=== PATIENT | male | born 1960 | race African-American/Black ===

== ENCOUNTER 2018-10-04 09:25 | Inpatient (IN) | payer MEDICAID ==
[~2018-10-04] VITALS: Ht 167.6 cm; Wt 69.9 kg
[~2018-10-04 09:25] MED LIST: CHOL20004 PO; LISI1TAB13 PO; METF-414 PO; SIMV20TA2 PO
[2018-10-04] MEDS ORDERED: ACETAMINOPHEN 325MG TABLET PO STA (11:43)
[2018-10-04] MEDS ORDERED: OSELTAMIVIR 75MG CAPSULE PO ONE (11:45)
[2018-10-04] MEDS ORDERED: LEVOFLOXACIN 750MG PREMIX 150 ML IV ONE (11:45)
[2018-10-04] MEDS ORDERED: SODIUM CHLORIDE 0.9% 1000ML BAG (SEPSIS BOLUS) IV ONE (11:45)
[2018-10-04] MEDS ORDERED: ONDANSETRON HCL 4MG/2ML INJ IV ONE (12:00)
[2018-10-04 12:49] LABS: HEMATOCRIT. 41.5 % (42.0-52.0); MEAN CORPUSCULAR HEMOGLOBIN 30.5 pg (28.0-32.0); MEAN CORPUSCULAR VOLUME 90.2 fL (80.0-94.0); MEAN PLATELET VOLUME 7.4 fl (7.4-10.4); PLATELET 261 x1000/uL (130-400); RED CELL DISTRIBUTION WIDTH 12.6 % (11.6-14.6)
[2018-10-04 12:53] LABS: CHLORIDE 94 mEq/L (98-107)
[2018-10-04 12:58] LABS: PROTHROMBIN TIME 10.5 sec (9.1-11.1)
[2018-10-04 13:47] LABS: PLATELET ESTIMATE NORMAL
[2018-10-04] MEDS ORDERED: DEXTROSE 50% WATER 50ML SYRINGE IV PRN (14:30)
[2018-10-04] MEDS ORDERED: CLONIDINE 0.1MG TABLET PO PRN (14:30)
[2018-10-04] MEDS ORDERED: IPRATROPIUM/ALBUTEROL 0.5-3(2.5)MG/3ML NEB HHN PRN (14:30)
[2018-10-04 20:06] LABS: CLARITY URINE CLEAR (CLEAR); COLOR URINE YELLOW (YELLOW); KETONES URINE TRACE (NEGATIVE); LEUKOCYTE ESTERASE URINE NEGATIVE (NEGATIVE); NITRITE URINE NEGATIVE (NEGATIVE); OCCULT BLOOD URINE 1+ (NEGATIVE); PROTEIN URINE 3+ (NEGATIVE); SPECIFIC GRAVITY URINE 1.028 (1.005-1.030); UROBILINOGEN URINE 0.2 E.U./dL (0.2-1.0)
[2018-10-04 20:20] LABS: *AMPHETAMINES SCREEN URINE NEGATIVE (NEGATIVE); *BARBITURATES SCREEN URINE NEGATIVE (NEGATIVE); *BENZODIAZEPINES SCREEN URINE NEGATIVE (NEGATIVE); *COCAINE SCREEN URINE NEGATIVE (NEGATIVE)
[2018-10-04 20:21] LABS: CANNABINOID URINE SCREEN PRESUMTIVE POSITIVE (NEGATIVE); METHADONE URINE SCREEN NEGATIVE (NEGATIVE); OPIATES URINE SCREEN NEGATIVE (NEGATIVE); PHENCYCLIDINE URINE SCREEN NEGATIVE (NEGATIVE)
[2018-10-04] MEDS ORDERED: INSULIN GLARGINE UD 100 UNITS/ML SYR SUBCUT SCH (22:00)
[2018-10-04] MEDS: OSELTAMIVIR 75MG CAPSULE PO SCH (23:18)
[2018-10-04] MEDS: ACETAMINOPHEN 325MG TABLET PO PRN (23:19)
[2018-10-04] MEDS: SODIUM CHLORIDE 0.45% 1,000 ML IV SCH (23:20)
[2018-10-04] MEDS: BLOOD SUGAR DIAGNOSTIC STRIP TEST SCH (23:20)
[2018-10-05] VITALS: BP 134/88
[2018-10-05] MEDS: ONDANSETRON HCL 4MG/2ML INJ IV PRN ×2 (00:01→22:21)
[2018-10-05] MEDS: KETOROLAC 30MG/ML VIAL IV PRN ×3 (00:02→13:08)
[2018-10-05] MEDS: INSULIN LISPRO 100 UNITS/ML SUBCUT SCH ×5 (00:33→20:22)
[2018-10-05] MEDS: INSULIN GLARGINE UD 100 UNITS/ML SYR SUBCUT SCH ×3 (00:33→22:30)
[2018-10-05 04:00] VITALS: BP 133/86
[2018-10-05 05:31] VITALS: BP 145/91
[2018-10-05] MEDS: BLOOD SUGAR DIAGNOSTIC STRIP TEST SCH ×4 (06:47→20:21)
[2018-10-05 07:42] LABS: CHLORIDE 101 mEq/L (98-107)
[2018-10-05 08:02] LABS: HEMATOCRIT. 41.5 % (42.0-52.0); MEAN CORPUSCULAR HEMOGLOBIN 30.7 pg (28.0-32.0); MEAN CORPUSCULAR VOLUME 90.8 fL (80.0-94.0); MEAN PLATELET VOLUME 7.4 fl (7.4-10.4); PLATELET 223 x1000/uL (130-400); RED BLOOD CELL COUNT 4.57 mill/uL (4.7-6.1); RED CELL DISTRIBUTION WIDTH 12.3 % (11.6-14.6)
[2018-10-05] MEDS: OSELTAMIVIR 75MG CAPSULE PO SCH ×2 (08:50→22:19)
[2018-10-05] MEDS: AMLODIPINE 5MG TABLET PO SCH ×2 (08:50→20:16)
[2018-10-05] MEDS: SODIUM CHLORIDE 0.45% 1,000 ML IV SCH (12:54)
[2018-10-05 13:27] LABS: PLATELET ESTIMATE NORMAL
[2018-10-05] MEDS ORDERED: BLOOD SUGAR DIAGNOSTIC STRIP TEST SCH (17:20)
[2018-10-05] MEDS ORDERED: HYDROMORPHONE HCL/PF 2MG/ML CPJ IV PRN (17:30)
[2018-10-05 20:00] VITALS: BP 146/87
[2018-10-06] VITALS (8 sets, daily range): BP systolic 124–140; BP diastolic 78–89
[2018-10-06] MEDS: ACETAMINOPHEN 325MG TABLET PO PRN ×2 (04:36→10:27)
[2018-10-06] MEDS: ONDANSETRON HCL 4MG/2ML INJ IV PRN (06:59)
[2018-10-06] MEDS: BLOOD SUGAR DIAGNOSTIC STRIP TEST SCH ×4 (06:59→20:20)
[2018-10-06] MEDS: INSULIN LISPRO 100 UNITS/ML SUBCUT SCH ×4 (07:50→20:20)
[2018-10-06] MEDS: AMLODIPINE 5MG TABLET PO SCH ×2 (09:08→20:12)
[2018-10-06] MEDS: OSELTAMIVIR 75MG CAPSULE PO SCH ×2 (09:09→20:11)
[2018-10-06] MEDS: GUAIFENESIN-DM 200MG-20MG/10ML UDC PO PRN (09:09)
[2018-10-06] MEDS: INSULIN GLARGINE UD 100 UNITS/ML SYR SUBCUT SCH (10:00)
[2018-10-06 10:07] LABS: BASOPHILS % 0.4 % (0.0-2.0); HEMATOCRIT. 42.7 % (42.0-52.0); HEMOGLOBIN. 14.6 g/dL (14.0-18.0); LYMPHOCYTES % 16.3 % (20.0-50.0); MEAN CORPUSCULAR HEMOGLOBIN 30.7 pg (28.0-32.0); MEAN CORPUSCULAR VOLUME 90.3 fL (80.0-94.0); MEAN PLATELET VOLUME 7.1 fl (7.4-10.4); MONOCYTES % 14.8 % (2.0-8.0); NEUTROPHILS % 68.5 % (40.0-76.0); PLATELET 217 x1000/uL (130-400); RED BLOOD CELL COUNT 4.73 mill/uL (4.7-6.1); RED CELL DISTRIBUTION WIDTH 12.3 % (11.6-14.6)
[2018-10-06 10:13] LABS: CHLORIDE 102 mEq/L (98-107)
[2018-10-06] MEDS: SODIUM CHLORIDE 0.45% 1,000 ML IV SCH (11:24)
[2018-10-06] MEDS: MORPHINE SULFATE 4 MG/ML CPJ (NOT FOR IM USE) IV PRN ×3 (13:41→22:08)
[2018-10-06] MEDS: FAMOTIDINE 20MG TABLET PO SCH (20:12)
[2018-10-07] VITALS: BP 135/81
[2018-10-07 04:00] VITALS: BP 80/78
[2018-10-07] MEDS: BLOOD SUGAR DIAGNOSTIC STRIP TEST SCH ×2 (06:44→11:20)
[2018-10-07] MEDS: INSULIN LISPRO 100 UNITS/ML SUBCUT SCH ×2 (07:50→11:20)
[2018-10-07 08:00] VITALS: BP 144/90
[2018-10-07 08:42] VITALS: BP 144/90
[2018-10-07] MEDS: AMLODIPINE 5MG TABLET PO SCH (08:59)
[2018-10-07] MEDS: OSELTAMIVIR 75MG CAPSULE PO SCH (08:59)
[2018-10-07] MEDS: GUAIFENESIN-DM 200MG-20MG/10ML UDC PO PRN (08:59)
[2018-10-07] MEDS: FAMOTIDINE 20MG TABLET PO SCH (09:00)
[2018-10-07 12:00] VITALS: BP 153/91
== END 2018-10-07 14:30 | disposition home or self-care (01) | DRG 720 ==
LOC: ER 09:29 → 6EST 13:36 → EDBEDREQ 13:38 → EDBEDREQTM 13:38 → CANRESERV 17:40 → EDRESERV 17:40 → ENRESERV 17:40 → EDBEDREQSVC 18:50 → ENRESERV 19:47
PROVIDERS: ADMIT Internal Medicine; ATTEND Internal Medicine
DX: A41.9 Sepsis, unspecified organism (principal); E44.1 Mild protein-calorie malnutrition; E87.8 Other disorders of electrolyte and fluid balance, not elsewhere classified; J10.1 Influenza due to other identified influenza virus with other respiratory manifestations; E87.1 Hypo-osmolality and hyponatremia; I10 Essential (primary) hypertension; J44.9 Chronic obstructive pulmonary disease, unspecified; E78.5 Hyperlipidemia, unspecified; E11.9 Type 2 diabetes mellitus without complications; E78.00 Pure hypercholesterolemia, unspecified; F12.90 Cannabis use, unspecified, uncomplicated; Z68.24 Body mass index [BMI] 24.0-24.9, adult
CPT/HCPCS: 36415; 71045; 74176; 80048; 80305; 82962; 83605; 84145; 84484; 87804; 93005; 93970; 96374; 99291; J1170; J1815; J1885; J1956; J2270; J2405; J7030

== ENCOUNTER 2018-12-17 07:18 | Inpatient (IN) | payer MEDICAID ==
[~2018-12-17] VITALS: Ht 175.3 cm; Wt 70.8 kg
[2018-12-17] MEDS ORDERED: SODIUM CHLORIDE 0.9% 1,000 ML IV ONE (08:22)
[2018-12-17] MEDS ORDERED: KETOROLAC 30MG/ML VIAL IV STA (08:22)
[2018-12-17] MEDS ORDERED: MAGNESIUM/ALUMINUM HYDROXIDE/SIMETHICONE 30ML UDC PO STA (08:22)
[2018-12-17] MEDS ORDERED: ONDANSETRON HCL 4MG/2ML INJ IV STA (08:22)
[2018-12-17 09:00] LABS: *AMPHETAMINES SCREEN URINE NEGATIVE (NEGATIVE); *BARBITURATES SCREEN URINE NEGATIVE (NEGATIVE); *BENZODIAZEPINES SCREEN URINE NEGATIVE (NEGATIVE); *COCAINE SCREEN URINE NEGATIVE (NEGATIVE); METHADONE URINE SCREEN NEGATIVE (NEGATIVE); OPIATES URINE SCREEN PRESUMTIVE POSITIVE (NEGATIVE)
[2018-12-17 09:01] LABS: CANNABINOID URINE SCREEN PRESUMTIVE POSITIVE (NEGATIVE); PHENCYCLIDINE URINE SCREEN NEGATIVE (NEGATIVE)
[2018-12-17 10:17] LABS: BASOPHILS % 0.5 % (0.0-2.0); EOSINOPHILS % 1.4 % (0.0-5.0); HEMATOCRIT. 50.5 % (42.0-52.0); HEMOGLOBIN. 17.2 g/dL (14.0-18.0); LYMPHOCYTES % 35.6 % (20.0-50.0); MEAN CORPUSCULAR HEMOGLOBIN 30.8 pg (28.0-32.0); MEAN CORPUSCULAR VOLUME 90.4 fL (80.0-94.0); MEAN PLATELET VOLUME 8.1 fl (7.4-10.4); MONOCYTES % 8.3 % (2.0-8.0); NEUTROPHILS % 54.2 % (40.0-76.0); PLATELET 320 x1000/uL (130-400); RED BLOOD CELL COUNT 5.58 mill/uL (4.7-6.1); RED CELL DISTRIBUTION WIDTH 13.1 % (11.6-14.6)
[2018-12-17 10:20] LABS: CHLORIDE 98 mEq/L (98-107)
[2018-12-17 10:25] LABS: ETHANOL BLOOD < 10 mg/dL
[2018-12-17] MEDS ORDERED: FENTANYL CITRATE/PF 50MCG/ML 2ML VIAL IV ONE (10:45)
[2018-12-17] MEDS ORDERED: INSULIN REGULAR (HUMULIN R) 300UNITS/3ML SUBCUT ONE (11:45)
[2018-12-17] MEDS ORDERED: DEXTROSE 50% WATER 50ML SYRINGE IV PRN (14:30)
[2018-12-17] MEDS: SODIUM CHLORIDE 0.9% 1,000 ML IV SCH (15:08)
[2018-12-17] MEDS: ONDANSETRON HCL 4MG/2ML INJ IV PRN (15:08)
[2018-12-17] MEDS: MORPHINE SULFATE 4 MG/ML CPJ (NOT FOR IM USE) IV PRN ×3 (15:08→22:49)
[2018-12-17 16:27] VITALS: BP 147/89
[2018-12-17] MEDS: BLOOD SUGAR DIAGNOSTIC STRIP TEST SCH ×3 (17:00→20:13)
[2018-12-17] MEDS: INSULIN LISPRO 100 UNITS/ML SUBCUT SCH ×2 (17:50→20:17)
[2018-12-17] MEDS ORDERED: SODIUM CHLORIDE 0.9% 1,000 ML IV SCH (19:00)
[2018-12-17 20:00] VITALS: BP 143/91
[2018-12-18] VITALS: BP 130/86
[2018-12-18] MEDS: SODIUM CHLORIDE 0.9% 1,000 ML IV SCH ×3 (00:22→23:04)
[2018-12-18] MEDS: MORPHINE SULFATE 4 MG/ML CPJ (NOT FOR IM USE) IV PRN ×6 (03:04→23:43)
[2018-12-18 04:00] VITALS: BP 148/93
[2018-12-18] MEDS: BLOOD SUGAR DIAGNOSTIC STRIP TEST SCH ×4 (06:40→21:00)
[2018-12-18] MEDS: INSULIN LISPRO 100 UNITS/ML SUBCUT SCH ×4 (06:41→21:00)
[2018-12-18 07:52] LABS: BASOPHILS % 0.6 % (0.0-2.0); HEMATOCRIT. 45.2 % (42.0-52.0); HEMOGLOBIN. 15.1 g/dL (14.0-18.0); LYMPHOCYTES % 39.6 % (20.0-50.0); MEAN CORPUSCULAR HEMOGLOBIN 30.6 pg (28.0-32.0); MEAN CORPUSCULAR VOLUME 91.7 fL (80.0-94.0); MEAN PLATELET VOLUME 7.6 fl (7.4-10.4); MONOCYTES % 7.8 % (2.0-8.0); PLATELET 264 x1000/uL (130-400); RED BLOOD CELL COUNT 4.93 mill/uL (4.7-6.1); RED CELL DISTRIBUTION WIDTH 13.1 % (11.6-14.6)
[2018-12-18 08:00] VITALS: BP 153/93
[2018-12-18 08:01] LABS: CHLORIDE 111 mEq/L (98-107)
[2018-12-18] MEDS ORDERED: SODIUM POLYSTYRENE SULFONATE 15 G/60 ML BOT PO NR (09:30)
[2018-12-18] MEDS: ONDANSETRON HCL 4MG/2ML INJ IV PRN ×2 (11:42→19:46)
[2018-12-18 12:00] VITALS: BP 140/86
[2018-12-18] MEDS ORDERED: SODIUM POLYSTYRENE SULFONATE 15 G/60 ML BOT PR NR (13:00)
[2018-12-18] MEDS: AMLODIPINE 10MG TABLET PO SCH (13:10)
[2018-12-18] MEDS ORDERED: SODIUM BICARBONATE 8.4% 1 MEQ/ML 50ML SYR IV SCH (15:00)
[2018-12-18] MEDS ORDERED: DEXTROSE 50% WATER 50ML SYRINGE IV SCH (15:00)
[2018-12-18] MEDS ORDERED: INSULIN REGULAR (HUMULIN R) UD 100 UNITS/ML SYR IV SCH (15:00)
[2018-12-18 16:00] VITALS: BP 144/80
[2018-12-18 20:00] VITALS: BP 196/120
[2018-12-19] VITALS: BP 141/81
[2018-12-19] MEDS: MORPHINE SULFATE 4 MG/ML CPJ (NOT FOR IM USE) IV PRN ×4 (03:50→16:22)
[2018-12-19 04:00] VITALS: BP 145/81
[2018-12-19] MEDS: SODIUM CHLORIDE 0.9% 1,000 ML IV SCH ×2 (06:34→16:21)
[2018-12-19] MEDS: BLOOD SUGAR DIAGNOSTIC STRIP TEST SCH ×3 (06:34→17:57)
[2018-12-19 06:48] LABS: BASOPHILS % 0.5 % (0.0-2.0); EOSINOPHILS % 1.3 % (0.0-5.0); HEMOGLOBIN. 13.7 g/dL (14.0-18.0); LYMPHOCYTES % 41.3 % (20.0-50.0); MEAN CORPUSCULAR HEMOGLOBIN 31.4 pg (28.0-32.0); MEAN CORPUSCULAR VOLUME 91.5 fL (80.0-94.0); MEAN PLATELET VOLUME 7.4 fl (7.4-10.4); MONOCYTES % 10.9 % (2.0-8.0); PLATELET 261 x1000/uL (130-400); RED BLOOD CELL COUNT 4.37 mill/uL (4.7-6.1)
[2018-12-19 07:36] LABS: CHLORIDE 109 mEq/L (98-107)
[2018-12-19] MEDS: INSULIN LISPRO 100 UNITS/ML SUBCUT SCH ×3 (07:49→17:50)
[2018-12-19 08:00] VITALS: BP 145/90
[2018-12-19] MEDS: AMLODIPINE 10MG TABLET PO SCH (08:02)
[2018-12-19 12:00] VITALS: BP 156/78
[2018-12-19 16:00] VITALS: BP 134/79
[2018-12-19 18:08] VITALS: BP 134/79
== END 2018-12-19 19:45 | disposition home or self-care (01) | DRG 282 ==
LOC: ER 07:24 → 6EST 11:43 → EDBEDREQ 15:20 → ENRESERV 15:35
PROVIDERS: ADMIT Internal Medicine; ATTEND Internal Medicine
DX: K85.90 Acute pancreatitis without necrosis or infection, unspecified (principal); E87.1 Hypo-osmolality and hyponatremia; F12.90 Cannabis use, unspecified, uncomplicated; I10 Essential (primary) hypertension; E78.5 Hyperlipidemia, unspecified; E11.9 Type 2 diabetes mellitus without complications; M48.07 Spinal stenosis, lumbosacral region; E78.00 Pure hypercholesterolemia, unspecified; Z79.4 Long term (current) use of insulin; Z79.84 Long term (current) use of oral hypoglycemic drugs; Z79.899 Other long term (current) drug therapy
CPT/HCPCS: 36415; 74176; 80048; 80305; 80320; 82962; 83036; 99285; J1815; J1885; J2270; J2405; J3010; J3490; J7030; G0480

== ENCOUNTER 2019-02-02 10:00 | Inpatient (IN) | payer MEDICAID ==
[~2019-02-02] VITALS: Ht 175.3 cm; Wt 68.9 kg
[2019-02-02] MEDS ORDERED: MORPHINE SULFATE 4 MG/ML CPJ (NOT FOR IM USE) IV STA (11:20)
[2019-02-02] MEDS ORDERED: FAMOTIDINE 20MG/2ML VIAL IV STA (11:20)
[2019-02-02] MEDS ORDERED: ONDANSETRON HCL 4MG/2ML INJ IV STA (11:20)
[2019-02-02] MEDS ORDERED: SODIUM CHLORIDE 0.9% 1,000 ML IV ONE (11:20)
[2019-02-02 11:40] LABS: BASOPHILS % 0.7 % (0.0-2.0); EOSINOPHILS % 1.9 % (0.0-5.0); HEMATOCRIT. 44.9 % (42.0-52.0); HEMOGLOBIN. 15.1 g/dL (14.0-18.0); MEAN CORPUSCULAR HEMOGLOBIN 30.9 pg (28.0-32.0); MEAN CORPUSCULAR VOLUME 91.8 fL (80.0-94.0); NEUTROPHILS % 59.4 % (40.0-76.0); PLATELET 291 x1000/uL (130-400); RED BLOOD CELL COUNT 4.89 mill/uL (4.7-6.1); RED CELL DISTRIBUTION WIDTH 12.7 % (11.6-14.6)
[2019-02-02 11:48] LABS: CHLORIDE 103 mEq/L (98-107); PROTHROMBIN TIME 10.1 sec (9.6-11.0)
[2019-02-02 11:52] LABS: ETHANOL BLOOD < 10 mg/dL
[2019-02-02 12:15] LABS: CLARITY URINE CLEAR (CLEAR); COLOR URINE YELLOW (YELLOW); KETONES URINE NEGATIVE (NEGATIVE); LEUKOCYTE ESTERASE URINE NEGATIVE (NEGATIVE); NITRITE URINE NEGATIVE (NEGATIVE); OCCULT BLOOD URINE TRACE (NEGATIVE); PROTEIN URINE 2+ (NEGATIVE); SPECIFIC GRAVITY URINE 1.023 (1.005-1.030)
[2019-02-02 12:27] LABS: *COCAINE SCREEN URINE NEGATIVE (NEGATIVE)
[2019-02-02 12:28] LABS: *BARBITURATES SCREEN URINE NEGATIVE (NEGATIVE); *BENZODIAZEPINES SCREEN URINE NEGATIVE (NEGATIVE); CANNABINOID URINE SCREEN PRESUMTIVE POSITIVE (NEGATIVE); METHADONE URINE SCREEN NEGATIVE (NEGATIVE); OPIATES URINE SCREEN PRESUMTIVE POSITIVE (NEGATIVE); PHENCYCLIDINE URINE SCREEN NEGATIVE (NEGATIVE)
[2019-02-02 12:29] LABS: *AMPHETAMINES SCREEN URINE NEGATIVE (NEGATIVE)
[2019-02-02] MEDS ORDERED: SODIUM POLYSTYRENE SULFONATE 15 G/60 ML BOT PO ONE (13:45)
[2019-02-02] MEDS ORDERED: ONDANSETRON HCL 4MG/2ML INJ IV PRN (13:45)
[2019-02-02] MEDS ORDERED: ACETAMINOPHEN 325MG TABLET PO PRN (13:45)
[2019-02-02] MEDS ORDERED: DEXTROSE 50% WATER 50ML SYRINGE IV PRN (13:45)
[2019-02-02] MEDS: SODIUM CHLORIDE 0.9% 1,000 ML IV SCH (13:45)
[2019-02-02] MEDS: FAMOTIDINE 20MG/2ML VIAL IV SCH (14:40)
[2019-02-02 15:31] VITALS: BP 137/80
[2019-02-02 16:00] VITALS: BP 142/89
[2019-02-02] MEDS: INSULIN LISPRO 100 UNITS/ML SUBCUT SCH ×2 (17:30→21:00)
[2019-02-02] MEDS: BLOOD SUGAR DIAGNOSTIC STRIP TEST SCH ×2 (17:30→21:00)
[2019-02-02] MEDS: METOCLOPRAMIDE HCL 10MG/2ML VIAL IV SCH (17:34)
[2019-02-02] MEDS: MORPHINE SULFATE 2 MG/ML CPJ (NOT FOR IM USE) IV PRN ×2 (17:40→21:53)
[2019-02-02 20:00] VITALS: BP 136/82
[2019-02-03] VITALS: BP 117/76
[2019-02-03] MEDS: METOCLOPRAMIDE HCL 10MG/2ML VIAL IV SCH ×4 (00:08→17:30)
[2019-02-03] MEDS: SODIUM CHLORIDE 0.9% 1,000 ML IV SCH ×3 (00:14→17:31)
[2019-02-03 04:00] VITALS: BP 152/88
[2019-02-03] MEDS: MORPHINE SULFATE 2 MG/ML CPJ (NOT FOR IM USE) IV PRN ×5 (04:52→22:11)
[2019-02-03 06:14] LABS: BASOPHILS % 0.8 % (0.0-2.0); EOSINOPHILS % 1.8 % (0.0-5.0); HEMATOCRIT. 41.3 % (42.0-52.0); HEMOGLOBIN. 14.2 g/dL (14.0-18.0); MEAN CORPUSCULAR HEMOGLOBIN 30.8 pg (28.0-32.0); MEAN CORPUSCULAR VOLUME 89.8 fL (80.0-94.0); MEAN PLATELET VOLUME 6.8 fl (7.4-10.4); MONOCYTES % 8.9 % (2.0-8.0); NEUTROPHILS % 51.5 % (40.0-76.0); PLATELET 283 x1000/uL (130-400); RED CELL DISTRIBUTION WIDTH 12.7 % (11.6-14.6)
[2019-02-03 06:47] LABS: CHLORIDE 110 mEq/L (98-107)
[2019-02-03] MEDS: INSULIN LISPRO 100 UNITS/ML SUBCUT SCH ×4 (07:50→21:00)
[2019-02-03 08:00] VITALS: BP 118/72
[2019-02-03] MEDS: BLOOD SUGAR DIAGNOSTIC STRIP TEST SCH ×4 (08:17→21:00)
[2019-02-03] MEDS: FAMOTIDINE 20MG/2ML VIAL IV SCH (09:09)
[2019-02-03 12:00] VITALS: BP 141/89
[2019-02-03 16:00] VITALS: BP 143/83
[2019-02-03 20:00] VITALS: BP 147/80
[2019-02-04] VITALS: BP 158/84
[2019-02-04] MEDS: SODIUM CHLORIDE 0.9% 1,000 ML IV SCH (00:38)
[2019-02-04] MEDS: METOCLOPRAMIDE HCL 10MG/2ML VIAL IV SCH ×3 (00:38→12:57)
[2019-02-04] MEDS: MORPHINE SULFATE 2 MG/ML CPJ (NOT FOR IM USE) IV PRN ×4 (02:06→13:01)
[2019-02-04 04:00] VITALS: BP 172/96
[2019-02-04] MEDS ORDERED: LORAZEPAM 1MG TABLET PO PRN (06:15)
[2019-02-04] MEDS ORDERED: CLONIDINE 0.1MG TABLET PO PRN (06:15)
[2019-02-04 06:44] LABS: AMYLASE 110 IU/L (25-115)
[2019-02-04] MEDS: BLOOD SUGAR DIAGNOSTIC STRIP TEST SCH ×2 (06:51→12:39)
[2019-02-04] MEDS: INSULIN LISPRO 100 UNITS/ML SUBCUT SCH ×2 (07:32→12:39)
[2019-02-04 08:20] VITALS: BP 156/87
[2019-02-04] MEDS: FAMOTIDINE 20MG/2ML VIAL IV SCH (08:43)
[2019-02-04] MEDS ORDERED: AMLODIPINE 5MG TABLET PO SCH (09:00)
[2019-02-04 12:00] VITALS: BP 134/80
[2019-02-04 13:42] VITALS: BP 134/80
== END 2019-02-04 13:54 | disposition home or self-care (01) | DRG 282 ==
LOC: ER 10:12 → 6EST 12:56 → EDBEDREQ 12:57 → EDBEDREQTM 12:57 → ENRESERV 13:16
PROVIDERS: ADMIT Internal Medicine; ATTEND Internal Medicine
DX: K85.90 Acute pancreatitis without necrosis or infection, unspecified (principal); E11.65 Type 2 diabetes mellitus with hyperglycemia; E87.5 Hyperkalemia; E78.00 Pure hypercholesterolemia, unspecified; E87.1 Hypo-osmolality and hyponatremia; E78.5 Hyperlipidemia, unspecified; I10 Essential (primary) hypertension; F12.90 Cannabis use, unspecified, uncomplicated; Z60.2 Problems related to living alone; Z79.84 Long term (current) use of oral hypoglycemic drugs; Z79.899 Other long term (current) drug therapy
CPT/HCPCS: 36415; 71045; 80048; 80305; 80320; 82150; 82962; 84132; 93005; 96361; 96374; 96375; 99285; J2270; J2405; J2765; J3490; J7030; G0480

== ENCOUNTER 2019-05-31 19:01 | Inpatient (IN) | payer MEDICAID ==
[~2019-05-31] VITALS: Ht 170.2 cm; Wt 69.9 kg
[2019-05-31] MEDS ORDERED: KETOROLAC 30MG/ML VIAL IV STA (20:13)
[2019-05-31] MEDS ORDERED: HYDROCODONE/ACETAMINOPHEN 5/325MG TABLET PO ONE (20:15)
[2019-05-31] MEDS ORDERED: VANCOMYCIN 1 G PREMIX 200 ML IV ONE (20:15)
[2019-05-31] MEDS ORDERED: PIPERACILLIN/TAZ 3.375G PREMIX 50 ML IV ONE (20:15)
[2019-05-31] MEDS ORDERED: SODIUM CHLORIDE 0.9% 1000ML BAG (SEPSIS BOLUS) IV ONE (20:15)
[2019-05-31 21:07] LABS: CHLORIDE 105 mEq/L (98-107)
[2019-05-31 21:08] LABS: BASOPHILS % 0.7 % (0.0-2.0); EOSINOPHILS % 1.5 % (0.0-5.0); HEMATOCRIT. 38.1 % (42.0-52.0); HEMOGLOBIN. 13.1 g/dL (14.0-18.0); LYMPHOCYTES % 31.4 % (20.0-50.0); MEAN CORPUSCULAR HEMOGLOBIN 31.1 pg (28.0-32.0); MEAN CORPUSCULAR VOLUME 90.4 fL (80.0-94.0); MONOCYTES % 9.9 % (2.0-8.0); NEUTROPHILS % 56.5 % (40.0-76.0); PLATELET 301 x1000/uL (130-400); RED BLOOD CELL COUNT 4.22 mill/uL (4.7-6.1); RED CELL DISTRIBUTION WIDTH 13.2 % (11.6-14.6)
[2019-06-01] MEDS ORDERED: HYDROCODONE/ACETAMINOPHEN 5/325MG TABLET PO ONE (00:15)
[2019-06-01 00:36] LABS: CLARITY URINE CLEAR (CLEAR); COLOR URINE YELLOW (YELLOW); KETONES URINE NEGATIVE (NEGATIVE); LEUKOCYTE ESTERASE URINE NEGATIVE (NEGATIVE); NITRITE URINE NEGATIVE (NEGATIVE); OCCULT BLOOD URINE NEGATIVE (NEGATIVE); PROTEIN URINE 1+ (NEGATIVE); SPECIFIC GRAVITY URINE 1.013 (1.005-1.030)
[2019-06-01 01:30] VITALS: BP 153/90
[2019-06-01] MEDS ORDERED: DEXTROSE 50% WATER 50ML SYRINGE IV PRN (02:15)
[2019-06-01] MEDS ORDERED: BENA20TA77 PO (02:25)
[2019-06-01] MEDS ORDERED: ATOR10TA PO (02:25)
[2019-06-01] MEDS ORDERED: METF-815 PO (02:25)
[2019-06-01] MEDS: MORPHINE SULFATE 2 MG/ML CPJ (NOT FOR IM USE) IV PRN ×5 (03:03→23:33)
[2019-06-01] MEDS: PIPERACILLIN/TAZOBACTAM 3.375 G in DEXT 5% WATER 100 ML IV SCH ×4 (04:48→22:00)
[2019-06-01] MEDS: BLOOD SUGAR DIAGNOSTIC STRIP TEST SCH ×4 (06:08→21:00)
[2019-06-01] MEDS: VANCOMYCIN 750 MG PREMIX 150 ML IV SCH ×3 (06:08→23:32)
[2019-06-01] MEDS: INSULIN LISPRO 100 UNITS/ML SUBCUT SCH ×4 (07:44→21:00)
[2019-06-01 08:00] VITALS: BP 144/84
[2019-06-01] MEDS: METFORMIN HCL 500MG TABLET PO SCH ×4 (08:49→19:25)
[2019-06-01] MEDS: BENAZEPRIL 10MG TABLET PO SCH ×2 (08:50→09:18)
[2019-06-01] MEDS: ONDANSETRON HCL 4MG/2ML INJ IV PRN ×2 (09:17→22:25)
[2019-06-01 12:00] VITALS: BP 151/91
[2019-06-01 16:00] VITALS: BP 143/94
[2019-06-01] MEDS ORDERED: AMOX-424 PO (17:40)
[2019-06-01 20:00] VITALS: BP 144/90
[2019-06-01] MEDS ORDERED: ATORVASTATIN CALCIUM 20MG TABLET PO SCH (21:00)
[2019-06-02] VITALS: BP 129/66
[2019-06-02 04:00] VITALS: BP 113/70
[2019-06-02] MEDS: PIPERACILLIN/TAZOBACTAM 3.375 G in DEXT 5% WATER 100 ML IV SCH ×2 (05:11→10:39)
[2019-06-02] MEDS: VANCOMYCIN 750 MG PREMIX 150 ML IV SCH (06:10)
[2019-06-02] MEDS: MORPHINE SULFATE 2 MG/ML CPJ (NOT FOR IM USE) IV PRN ×2 (06:11→10:40)
[2019-06-02] MEDS: ONDANSETRON HCL 4MG/2ML INJ IV PRN ×2 (06:25→10:49)
[2019-06-02] MEDS: BLOOD SUGAR DIAGNOSTIC STRIP TEST SCH (06:38)
[2019-06-02] MEDS: INSULIN LISPRO 100 UNITS/ML SUBCUT SCH (07:50)
[2019-06-02 08:00] VITALS: BP 142/83
[2019-06-02 08:14] VITALS: BP 118/70
[2019-06-02] MEDS: BENAZEPRIL 10MG TABLET PO SCH (09:01)
[2019-06-02] MEDS: METFORMIN HCL 500MG TABLET PO SCH (09:02)
[2019-06-02 10:40] VITALS: BP 142/83
== END 2019-06-02 12:43 | disposition home or self-care (01) | DRG 384 ==
LOC: ER 19:01 → EDBEDREQTM 22:58 → EDBEDREQ 22:58 → ENRESERV 23:57 → 6EST 06-01 01:24
PROVIDERS: ADMIT Internal Medicine; ATTEND Internal Medicine
PROC: 0JBR0ZZ Excision of Left Foot Subcutaneous Tissue and Fascia, Open Approach (ICD-10-PCS; principal; 2019-06-01)
DX: S91.102A Unspecified open wound of left great toe without damage to nail, initial encounter (principal); E11.40 Type 2 diabetes mellitus with diabetic neuropathy, unspecified; E11.65 Type 2 diabetes mellitus with hyperglycemia; L03.032 Cellulitis of left toe; T25.032A Burn of unspecified degree of left toe(s) (nail), initial encounter; D72.829 Elevated white blood cell count, unspecified; E78.00 Pure hypercholesterolemia, unspecified; F10.10 Alcohol abuse, uncomplicated; I10 Essential (primary) hypertension; F12.90 Cannabis use, unspecified, uncomplicated; E78.5 Hyperlipidemia, unspecified; Z91.19 Patient's noncompliance with other medical treatment and regimen; Z79.899 Other long term (current) drug therapy; Z79.84 Long term (current) use of oral hypoglycemic drugs; Y93.89 Activity, other specified; Y92.89 Other specified places as the place of occurrence of the external cause; Y99.8 Other external cause status
CPT/HCPCS: 36415; 71045; 73630; 81003; 82962; 83605; 84145; 84484; 85651; 86140; J1815; J1885; J2270; J2405; J2543; J3370; J7030; J7040; J7060

== ENCOUNTER 2019-11-29 13:41 | Emergency (ER) | payer MEDICAID ==
[~2019-11-29] VITALS: Ht 175.3 cm; Wt 72.0 kg
[~2019-11-29 13:41] MED LIST changes: +AMLO5TAB88 MT; -LISI1TAB13 PO; +METF-414 MT; -METF-414 PO; -SIMV20TA2 PO
[2019-11-29] MEDS ORDERED: KETOROLAC 30MG/ML VIAL IM ONE (18:30)
[2019-11-29] MEDS ORDERED: KETOROLAC 15MG/ML VIAL IV ONE (18:45)
[2019-11-29 18:52] VITALS: BP 106/83
[2019-11-29 18:52] LABS: PROTHROMBIN TIME 10.7 sec (9.6-11.0)
[2019-11-29 18:53] LABS: BASOPHILS % 0.6 % (0.0-2.0); EOSINOPHILS % 0.6 % (0.0-5.0); HEMATOCRIT. 46.3 % (42.0-52.0); HEMOGLOBIN. 15.6 g/dL (14.0-18.0); LYMPHOCYTES % 28.1 % (20.0-50.0); MEAN CORPUSCULAR HEMOGLOBIN 30.8 pg (28.0-32.0); MEAN CORPUSCULAR VOLUME 91.3 fL (80.0-94.0); MONOCYTES % 8.7 % (2.0-8.0); PLATELET 339 x1000/uL (130-400); RED BLOOD CELL COUNT 5.08 mill/uL (4.7-6.1); RED CELL DISTRIBUTION WIDTH 13.4 % (11.6-14.6)
[2019-11-29 18:54] LABS: CHLORIDE 103 mEq/L (98-107)
[2019-11-29 19:53] LABS: CLARITY URINE CLOUDY (CLEAR); COLOR URINE DARK YELLOW (YELLOW); KETONES URINE 1+ (NEGATIVE); LEUKOCYTE ESTERASE URINE NEGATIVE (NEGATIVE); NITRITE URINE NEGATIVE (NEGATIVE); OCCULT BLOOD URINE NEGATIVE (NEGATIVE); PROTEIN URINE 3+ (NEGATIVE); SPECIFIC GRAVITY URINE 1.024 (1.005-1.030)
[2019-11-29] MEDS ORDERED: ONDANSETRON 4MG ODT PO ONE (20:00)
== END 2019-11-29 20:03 | disposition home or self-care (01) ==
LOC: ER 13:41
DX: K86.1 Other chronic pancreatitis (principal); N39.0 Urinary tract infection, site not specified; I10 Essential (primary) hypertension; E11.9 Type 2 diabetes mellitus without complications; Z79.84 Long term (current) use of oral hypoglycemic drugs; Z79.899 Other long term (current) drug therapy
CPT/HCPCS: 36415; 76705; 80053; 81003; 83690; 85025; 85610; 93005; 96374; 99285; J1885

== ENCOUNTER 2021-05-26 17:41 | Emergency (ER) | payer MEDICAID ==
[~2021-05-26] VITALS: Ht 175.3 cm; Wt 70.0 kg
[2021-05-26] MEDS ORDERED: LIDOCAINE HCL/PF 1% 10 MG/ML 5ML VIAL INFIL ONE (19:15)
[2021-05-26] MEDS ORDERED: HYDROCODONE/ACETAMINOPHEN 5/325MG TABLET PO ONE (19:15)
[2021-05-26] MEDS ORDERED: SULF1TAB48 MT (20:08)
[2021-05-26] MEDS ORDERED: CEPH500C2 MT (20:08)
[2021-05-26 21:23] VITALS: BP 165/88
== END 2021-05-26 21:24 | disposition home or self-care (01) ==
LOC: ER 17:41
DX: L02.811 Cutaneous abscess of head [any part, except face] (principal); E11.9 Type 2 diabetes mellitus without complications; E78.00 Pure hypercholesterolemia, unspecified; I10 Essential (primary) hypertension; Z87.19 Personal history of other diseases of the digestive system; Z79.84 Long term (current) use of oral hypoglycemic drugs
CPT/HCPCS: 10060; 99283; J3490